=== PATIENT | female | born 1935 | race Caucasian/White ===

== ENCOUNTER 2024-10-24 12:13 | Observation (INO) ==
[2024-10-24 13:34] LABS: ABS Lymphocytes 0.6 10^3/uL (1.0-4.8); ABS Monocytes 0.1 10^3/uL (0.0-0.9); ABS Neutrophils 9.7 10^3/uL (1.5-7.6); Eosinophil % 0.1 %; Hematocrit 31.5 % (35-45); Hemoglobin 10.8 g/dL (11.5-14.3); Lymphocyte % 5.9 %; Mean Corpuscular Hemoglobin 31.4 pg (27-33); Mean Corpuscular Hgb Conc 34.3 g/dL (31-36); Mean Corpuscular Volume 91.5 fL (80-97); Mean Platelet Volume 7.7 fL (7.5-11.2); Platelet Count 303 10^3/uL (150-450); Red Blood Count 3.44 10^6/uL (3.63-4.92); Red Cell Distribution Width 13.9 % (12-17); White Blood Count 10.5 10^3/uL (3.8-11.8)
[2024-10-24 13:50] LABS: INR 1.04 (0.85-1.14)
[2024-10-24 13:59] LABS: Albumin 3.5 g/dL (3.2-5.2); Albumin/Globulin Ratio 1.3 (1-3); C Reactive Protein 7.26 mg/L (<8.01); Calcium 8.8 mg/dL (8.6-10.3); Creatinine, Serum 0.63 mg/dL (0.51-0.95); Globulin 2.8 g/dL (2-4); Potassium 3.8 mmol/L (3.5-5.0); Total Bilirubin 0.3 mg/dL (0.2-1.0); Total Protein 6.3 g/dL (6.4-8.9); eGFR CKD-EPI 85.8 (>60)
[2024-10-24 14:17] LABS: Urine Appearance Clear; Urine Bilirubin Negative (Negative); Urine Blood Negative (Negative); Urine Color Colorless; Urine Glucose Negative (Negative); Urine Ketones Negative (Negative); Urine Nitrite Negative (Negative); Urine Protein Negative (Negative); Urine Specific Gravity 1.007 (1.002-1.030); Urine Urobilinogen Negative (Negative); Urine pH 6.5 (5.0-8.0)
[2024-10-24] MEDS: Furosemide 40 mg/4 ml IV VIAL IV SLOW PU ONE (14:53)
[2024-10-24 14:54] LABS: High Sensitivity Troponin 1 Hr 30 pg/mL (<15)
[2024-10-24] MEDS: Iohexol 350 (CONTRAST) 500 ML MDV IV ONE (16:17)
[2024-10-24] MEDS: Heparin DRIP 25,000 UNITS BAG 25,000 UNITS/250 ML BAG IV SCH (16:48)
[2024-10-24] MEDS: Heparin 5000 UNITS/ML 1 mL VIAL IV SCH (16:49)
[2024-10-24 17:03] LABS: ABS Lymphocytes 0.8 10^3/uL (1.0-4.8); ABS Monocytes 0.3 10^3/uL (0.0-0.9); ABS Neutrophils 8.5 10^3/uL (1.5-7.6); ABS Nucleated RBC 0.01 10^3/ul; Hematocrit 33.4 % (35-45); Hemoglobin 11.1 g/dL (11.5-14.3); Lymphocyte % 8.6 %; Mean Corpuscular Hemoglobin 30.2 pg (27-33); Mean Corpuscular Hgb Conc 33.4 g/dL (31-36); Mean Corpuscular Volume 90.5 fL (80-97); Mean Platelet Volume 7.8 fL (7.5-11.2); Nucleated Red Blood Cells % 0.1 %/100WBC (0.0-0.8); Platelet Count 350 10^3/uL (150-450); Red Blood Count 3.69 10^6/uL (3.63-4.92); Red Cell Distribution Width 14.4 % (12-17); White Blood Count 9.7 10^3/uL (3.8-11.8)
[2024-10-24 18:02] LABS: Creatinine, Serum 0.65 mg/dL (0.51-0.95); eGFR CKD-EPI 85.2 (>60)
[2024-10-25 06:23] LABS: ABS Basophils 0.1 10^3/uL (0.0-0.1); ABS Eosinophils 0.2 10^3/uL (0.0-0.5); ABS Lymphocytes 2.5 10^3/uL (1.0-4.8); ABS Monocytes 0.7 10^3/uL (0.0-0.9); ABS Neutrophils 7.6 10^3/uL (1.5-7.6); Eosinophil % 1.5 %; Hematocrit 31.1 % (35-45); Hemoglobin 10.4 g/dL (11.5-14.3); Mean Corpuscular Hemoglobin 30.6 pg (27-33); Mean Corpuscular Hgb Conc 33.4 g/dL (31-36); Mean Corpuscular Volume 91.5 fL (80-97); Mean Platelet Volume 7.6 fL (7.5-11.2); Platelet Count 308 10^3/uL (150-450); Red Cell Distribution Width 14.6 % (12-17)
[2024-10-25] MEDS ORDERED: Sulfur Hexaflouride MICROSPHR 25 MG VIAL IV PRN (06:47)
[2024-10-25] MEDS: Tiotropium Brom/Olodaterol MDI (ACUTE) INH SCH (07:52)
[2024-10-25 08:00] LABS: Calcium 8.5 mg/dL (8.6-10.3); Creatinine, Serum 0.71 mg/dL (0.51-0.95); Potassium 3.2 mmol/L (3.5-5.0); eGFR CKD-EPI 82.2 (>60)
[2024-10-25] MEDS: Letrozole 2.5 MG TAB (NF) PO SCH (09:16)
[2024-10-25] MEDS: Triamcinolone 0.025% OINT 15 GM TUBE TOPICAL SCH (09:17)
[2024-10-25] MEDS: Potassium EFFERVES 25 meq TAB PO ONE (09:32)
[2024-10-25] MEDS: KCL 10 MEQ/50 ML IVPREMIX 10 MEQ/50 ML BAG IV SCH (09:33)
[2024-10-25 11:06] LABS: TSH Ultra Thyroid Stim Horm 2.47 mcIU/mL (0.34-5.60)
[2024-10-25 11:13] LABS: Ferritin 19.3 ng/mL (11-307)
[2024-10-25 11:17] LABS: Folate 15.06 ng/mL (5.90-24.80)
[2024-10-26 05:56] LABS: ABS Eosinophils 0.4 10^3/uL (0.0-0.5); ABS Lymphocytes 2.5 10^3/uL (1.0-4.8); ABS Monocytes 0.5 10^3/uL (0.0-0.9); ABS Neutrophils 7.1 10^3/uL (1.5-7.6); ABS Nucleated RBC 0.01 10^3/ul; Eosinophil % 3.7 %; Hematocrit 31.1 % (35-45); Hemoglobin 10.7 g/dL (11.5-14.3); Lymphocyte % 23.6 %; Mean Corpuscular Hemoglobin 31.6 pg (27-33); Mean Corpuscular Hgb Conc 34.5 g/dL (31-36); Mean Corpuscular Volume 91.7 fL (80-97); Mean Platelet Volume 7.8 fL (7.5-11.2); Nucleated Red Blood Cells % 0.1 %/100WBC (0.0-0.8); Platelet Count 299 10^3/uL (150-450); Red Blood Count 3.39 10^6/uL (3.63-4.92); Red Cell Distribution Width 14.3 % (12-17); White Blood Count 10.5 10^3/uL (3.8-11.8)
[2024-10-26 06:11] LABS: Calcium 8.6 mg/dL (8.6-10.3); Creatinine, Serum 0.64 mg/dL (0.51-0.95); Potassium 3.7 mmol/L (3.5-5.0); eGFR CKD-EPI 85.5 (>60)
[2024-10-26 10:37] VITALS: BP 106/68
== END 2024-10-26 14:00 | disposition home or self-care (01) ==
LOC: ED 12:13 → EDHOLD 12:13 → SUATTDRO 17:44 → MEDTELE 20:16
PROVIDERS: ADMIT Internal Medicine; ATTEND Internal Medicine